=== PATIENT | female | born 1985 | race Caucasian/White ===

== ENCOUNTER 2017-11-07 11:23 | Emergency (ER) | payer OTHER ==
[2017-11-07 11:31] VITALS: PULSE 98; RESP 20; TEMP 98.6; O2SAT 100
[2017-11-07] MEDS ORDERED: Tetanus/Diphtheria Toxoids 0.5 ml Syringe IM ONE ×2 (11:40→12:17)
--- NOTE | 2017-11-07 11:51 | C.PDOC ---
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 Patient states she was cleaning the inside of the container packer operator when she accidentally turned it on. Patient denies any other trauma/injuries, numbness or tingling. Time Seen by Provider: 11/07/17 11:39 Chief Complaint (Nursing): Abnormal Skin Integrity History Per: Patient History/Exam Limitations: no limitations Onset/Duration Of Symptoms: Mins Current Symptoms Are (Timing): Still Present Location Of Injury: Right: Hand (2nd digit laceration ) Quality Of Symptoms: Painful Recent travel outside of the [place]: No Past Medical History Reviewed: Historical Data, Nursing Documentation, Vital Signs Vital Signs: Last Vital Signs Temp 98.6 F 11/07/17 11:30 Pulse 98 H 11/07/17 11:30 Resp 20 11/07/17 11:30 BP 135/80 11/07/17 13:29 Pulse Ox 100 11/07/17 22:04 - Medical History PMH: Hypothyroidism Surgical History: Appendectomy Family History: States: No Known Family Hx - Social History Hx Alcohol Use: No Hx Substance Use: No - Immunization History Hx Tetanus Toxoid Vaccination: Yes Hx Influenza Vaccination: No Hx Pneumococcal Vaccination: No Review Of Systems Except As Marked, All Systems Reviewed And Found Negative. Skin: Positive for: Other (laceration to the 2nd digit of right hand ) Neurological: Negative for: Weakness, Numbness Physical Exam - Physical Exam Appears: Non-toxic, No Acute Distress Skin: Warm, Dry, Other (irregular multiple lacerations with areas of avulsed skin to the distal and medial phalange of right index finger. No sensory/motor deficict. ) Head: Atraumatic Eye(s): bilateral: Normal Inspection Nose: Normal Oral Mucosa: Moist Pulses: Left Radial: Normal, Right Radial: Normal Neurological/Psych: Oriented x3, Normal Speech, Normal Motor, Normal Sensation, Normal Reflexes Gait: Steady ED Course And Treatment O2 Sat by Pulse Oximetry: 100 (RA) Pulse Ox Interpretation: Normal Progress Note: TD administered by RN. XR of right hand ordered. No fractures/ dislocations. Medical Decision Making Medical Decision Makin Discussed case with Dr. Santos. Will consult with Dr. Joseph. [address] Joseph, Hand surgery, for consult. 1500 Dr. Joseph repaired finger laceration. Disposition - Disposition Disposition: HOME/ ROUTINE Disposition Time: 15:11 Condition: STABLE Additional Instructions: Follow up with your PMD as was instructed by hand specialist. Return to ED if feel worse. Prescriptions: Cephalexin [Keflex] 500 mg PO Q6 #20 cap Instructions: Common Finger Injuries (DC) Forms: [employer] Connect (French) - Clinical Impression Clinical Impression: Finger laceration - PA / ENROLLMENT MANAGER / Resident Statement MD/DO has reviewed & agrees with the documentation as recorded. - Scribe Statement The provider has reviewed the documentation as recorded by the Scribe Sandra Robledo All medical record entries made by the Sylvesteribjesús were at my direction and personally dictated by me. I have reviewed the chart and agree that the record accurately reflects my personal performance of the history, physical exam, medical decision making, and the department course for this patient. I have also personally directed, reviewed, and agree with the discharge instructions and disposition.
[2017-11-07] MEDS ORDERED: Oxycodone/Acetaminophen 5/325 mg Tab PO STA (12:37)
[2017-11-07] MEDS ORDERED: Oxycodone/Acetaminophen 5/325 mg Tab ONE (12:43)
[2017-11-07 13:30] VITALS: BP 135/80
--- NOTE | 2017-11-07 13:33 | RAD ---
Date of service: 11/07/2017 PROCEDURE: Right Index finger radiographs. 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 TECHNIQUE: AP radiograph of the right hand, as well as spot oblique and lateral images of index finger were obtained. FINDINGS: RIGHT INDEX FINGER: Normal right index finger, without fracture. There is punctate density seen at the mid portion of the right index finger may represent foreign bodies. Remainder of the right hand (as seen on the AP view) grossly intact. JOINTS: Normal. SOFT TISSUES: Soft tissue injury in the mid to distal right index finger. Punctate high density may represent foreign body. OTHER FINDINGS: None. IMPRESSION: No evidence of acute fracture. Soft tissue injury. Questionable punctate high density may represent foreign bodies.
[2017-11-07] MEDS ORDERED: Lidocaine 2% Inj (20ml) INFIL STA (13:54)
[2017-11-07] MEDS ORDERED: Lidocaine 2% MPF (5 ml) Inj ONE (14:26)
[2017-11-07] MEDS ORDERED: Lidocaine 2% Inj (20ml) INFIL ONE (14:40)
--- NOTE | 2017-11-08 04:25 | OP ---
PROCEDURE DATE: 11/07/2017 PREOPERATIVE DIAGNOSES: 1. Complex wound, right index finger, measuring 5 cm. 2. Partial finger amputation of the distal phalanx, right index finger. POSTOPERATIVE DIAGNOSES: 1. Complex wound, right index finger, measuring 5 cm. 2. Partial finger amputation of the distal phalanx, right index finger. PROCEDURES: 1. Open wound exploration of the penetrating wound, index finger (). 2. Complex layered wound closure of index finger (27216). 3. Open wound debridement of muscle, tendon, and distal phalanx bone (07307). SURGEON: Rivera Joseph MD ANESTHESIA: Local. COMPLICATIONS: None. SPECIMEN: None. INDICATION: This is a 31-year-old right-hand dominant female, who presents to [facility] Room after she sustained an injury to her index finger. Her finger was caught in a hot frame tender causing laceration and abrasions of the distal phalanx. The patient was seen in the emergency room and underwent the above procedures in the emergency room. Informed consent was obtained. Risks and benefits of the procedure were explained which included, but not limited to bleeding, infection, tendon, nerve, and vessel injury, instability, chronic pain, and potential need for additional surgery in the future. The patient understood the above risks and elected to proceed. DESCRIPTION OF PROCEDURE: The right index finger was prepped and draped in standard surgical fashion. Local digital block was performed with 10 mL of 1% lidocaine injected into the A1 erick and into the laceration site. There was open laceration with jagged edges of 5 cm in length over the volar-ulnar site of the distal phalanx. The digit was elevated and exsanguinated. The penetrating wound was explored with the use of dissecting scissors and hemostat. The deep layer of the wound was explored. The flexor digitorum profundus was identified and was intact as was the radial and ulnar neurovascular bundles. The wound was then copiously irrigated and debrided with a rongeur including the distal phalanx bone, tendon, and soft tissue. The digit had good capillary refills to the tip of the finger. The nail was uninvolved. After thorough irrigation with normal saline and debridement, work was begun on closing the wound. The deep layers were closed with 4-0 Vicryl sutures, followed by 4-0 suture for the skin layers. Sutures were interrupted and simple. There was a 2 cm loss of skin over the volar aspect of the distal phalanx which was left open for secondary healing. Hemostasis was obtained. Sterile dressing was then applied consisting of fluffs, 4x4, and Xeroform. The patient tolerated the procedure well. She was instructed for daily wound checks and soaks, and will follow up with me in three days for reevaluation. Rivera Joseph MD
--- NOTE | 2017-11-08 04:40 | CON ---
DATE: 11/07/2017 REASON FOR CONSULTATION: Right index finger open wound. HISTORY OF PRESENT ILLNESS: This is a 31-year-old right-hand dominant female who got her finger caught in a disaster director, presents to [facility] with complaints of sharp pain, swelling, and bleeding of the index finger. Initial examination confirmed open wound. I was consulted for further evaluation and treatment. PHYSICAL EXAMINATION: MUSCULOSKELETAL: Right index finger: There is a volar ulnar jagged laceration over the distal phalanx measuring 5cm with loss of about 2 cm of skin on the volar side. The patient has intact sensation to the tip of the finger. Nails intact. She can actively flex her MP, PIP, and DIP joints. The wound is deep with exposed flexor tendon. There is good capillary refill to the digit. No finger malrotation. X-rays of the index finger were then reviewed, showed well-aligned MP, PIP, and DIP joints. No fracture or dislocations. ASSESSMENT: Right index finger complex wound. PLAN: I discussed the findings with the patient. I recommended wound exploration and fixation of injured structures. Informed consent was obtained. The patient underwent wound exploration and repair, which was dictated in my surgical note. Rivera Joseph MD MTDManjinder
== END 2017-11-07 15:30 | disposition home or self-care (01) ==
LOC: C.ER 11:23
DX: S68.120A Partial traumatic metacarpophalangeal amputation of right index finger, initial encounter (principal); W45.8XXA Other foreign body or object entering through skin, initial encounter; Y93.G1 Activity, food preparation and clean up